=== PATIENT | female | born 1990 | race Two or more races ===

== ENCOUNTER 2016-12-04 21:19 | Emergency (ER) | payer OTHER ==
[~2016-12-04] VITALS: Ht 162.6 cm; Wt 113.4 kg
[2016-12-04] MEDS ORDERED: NKM (21:52)
[2016-12-04 22:55] VITALS: BP 130/85
[2016-12-04] MEDS ORDERED: IBUPROFEN600 MG ORAL (22:55)
--- NOTE | 2016-12-04 22:55 | Emergency Room Report ---
History of Present Illness General Chief Complaint: Head Injury Source: Patient Present Illness HPI 26-year-old female with no past medical history. She presents with head injury from work. She was reaching for cast iron mendieta and it fell and hit her on the head. She sustained a swelling to the forehead. No loss of consciousness. Pain is 8/10. Throbbing in nature. No other injury. Occurred just prior to arrival. Allergies: Coded Allergies: No Known Allergies (Unverified , 12/04/16) Patient History Past Medical History: see triage record, old chart reviewed Past Surgical History: none Pertinent Family History: none Social History: Denies: smoking Last Menstrual Period: 3 months Now: No Immunizations: other Reviewed Nursing Documentation: PMH: Agreed, PSxH: Agreed Nursing Documentation-PMH Past Medical History: No Stated History Review of Systems Eye: Denies: eye pain, blurred vision ENT: Denies: ear pain, nose congestion, throat swelling Respiratory: Denies: cough, shortness of breath Cardiovascular: Denies: chest pain, palpitations Gastrointestinal: Denies: abdominal pain, diarrhea, nausea, vomiting Musculoskeletal: Denies: back pain, joint pain Skin: Denies: rash Neurological: Denies: headache, numbness Endocrine: Denies: increased thirst, increased urine Hematologic/Lymphatic: Denies: easy bruising All Other Systems: negative except mentioned in HPI Physical Exam Vital Signs Date Time Temp Pulse Resp B/P (MAP) Pulse Ox O2 Delivery O2 Flow Rate FiO2 12/04/16 21:47 98.1 74 16 130/85 98 Room Air vitals normal Sp02 EP Interpretation: reviewed, normal General Appearance: well appearing, no apparent distress, alert Head: normocephalic, other - 3-4 cm hematoma to the right forehead Eyes: bilateral eye PERRL, bilateral eye EOMI ENT: hearing grossly normal, normal pharynx Neck: full range of motion, supple, no meningismus Respiratory: chest non-tender, lungs clear, normal breath sounds Cardiovascular #1: regular rate, rhythm, no murmur Gastrointestinal: normal bowel sounds, non tender, no mass, no organomegaly, no bruit, non-distended Musculoskeletal: back normal, gait/station normal, normal range of motion Psychiatric: mood/affect normal Skin: warm/dry Medical Decision Making Diagnostic Impression: Primary Impression: Acute head injury Qualified Codes: S09.90XA - Unspecified injury of head, initial encounter Additional Impression: Traumatic hematoma of forehead Qualified Codes: S00.83XA - Contusion of other part of head, initial encounter ER Course Patient with soft tissue injury from head trauma. No internal bleeding. No skull fracture. We'll discharge home. CT/MRI/US Diagnostic Results CT/MRI/US Diagnostic Results : Imaging Test Ordered: CT head Impression Read by radiologist. soft tissue swelling. no ICH or skull frx. Last Vital Signs Date Time Temp Pulse Resp B/P (MAP) Pulse Ox O2 Delivery O2 Flow Rate FiO2 12/04/16 21:47 98.1 74 16 130/85 98 Room Air Status: improved Disposition: HOME, SELF-CARE Condition: Stable Scripts Ibuprofen* (MOTRIN*) 600 Mg Tablet 600 MG ORAL Q8H Y for For Pain, #30 TAB 0 Refills Prov: PETE FREED M.D. 12/04/16 Patient Instructions: HEAD INJURY, No Wake-Up (Adult) Additional Instructions: Follow up with Worker's Comp. in 2 days. Return if worse. PETE FREED M.D. Dec 04, 2016 22:55
--- NOTE | 2016-12-05 09:10 | Diagnostic Imaging Report ---
Indication: TRAUMA, pain, status post work injury Technique: Continuous helical CT scanning of the head was performed without intravenous contrast material. Axial and coronal 5 mm sections were generated. Radiation dose was minimized using automated exposure control Dose: Total Dose Length Product - DLP [address] Dose Index - CTDIvol(s) 70.38 mGy. Comparison: None Findings: The ventricular system is normal in size and configuration. There is no shift of midline structures. No abnormal extra-axial fluid collections are noted. There is no evidence of intracerebral bleeding. No other abnormal high or low density areas are noted within the brain. There is right frontal scalp soft tissue swelling. No underlying calvarial injury. The calvarium is intact. Visualized orbits and sinuses are unremarkable. Prominent sella turcica Impression: Normal CT scan of the head without contrast material. Evidence of right frontal scalp soft tissue injury This agrees with the preliminary interpretation provided overnight by [facility]. The CT scanner at [facility] is accredited by the [place] [employer] [employer] and the scans are performed using protocols designed to limit radiation exposure to as low as reasonably achievable to attain images of sufficient resolution adequate for diagnostic evaluation.
== END 2016-12-04 22:55 | disposition home or self-care (01) ==
LOC: EMR 22:00
DX: S00.83XA Contusion of other part of head, initial encounter (principal); W22.03XA Walked into furniture, initial encounter; Y92.69 Other specified industrial and construction area as the place of occurrence of the external cause; Y99.0 Civilian activity done for income or pay
CPT/HCPCS: 70450; 99284